=== PATIENT | female | born 1960 | race Caucasian/White ===

== ENCOUNTER → 2020-01-08 08:03 | Outpatient (BNVA) | payer OTHER, SELFPAY | PROVIDERS: Visit Provider Dietitian, Registered | DX: Z76.89 Persons encountering health services in other specified circumstances (principal) ==

== ENCOUNTER 2020-05-26 11:03 | Outpatient (REF) | payer OTHER, SELFPAY ==
--- NOTE | ~2020-05-26 | XR_ITS ---
EXAMINATION: XR HAND, LEFT CLINICAL INFORMATION: Left hand pain COMPARISON: None TECHNIQUE: PA, lateral, and oblique views of the left hand. Additional coned-down 2 views of the third digit. FINDINGS: There is no fracture or dislocation. Alignment is anatomic. The joint spaces are maintained. Tiny marginal osteophytes are seen throughout the distal interphalangeal joints. Mild soft tissue swelling of the third digit. No foreign body. XR/XR hand LT min 3V IMPRESSION: No acute osseous abnormality. Mild degenerative change. There are digit soft tissue swelling is noted.
== END 2020-05-26 11:04 | disposition home or self-care (01) ==
LOC: HO.HOSX 11:03
PROVIDERS: Visit Provider Orthopaedic Surgery
DX: S63.633A Sprain of interphalangeal joint of left middle finger, initial encounter (principal)
CPT/HCPCS: 73130

== ENCOUNTER 2022-11-30 12:28 | Outpatient (AMB) | payer OTHER, SELFPAY ==
--- NOTE | 2022-11-30 12:33 | MHC.OFFVISWM ---
Intake VS Expanded 11/30/22 12:37 BP 152/68 H Blood Pressure Location Rt brachial Blood Pressure Position Sitting Pulse 76 Pulse Source Pulse Oximeter Temp 97.7 F Temperature Source Temporal Artery Scan Pulse Oximetry 96 Oxygen Delivery Method Room Air Height 5 ft 6 in Weight 237 lb 3.2 oz BMI 38.3 Body Fat % 46.2 Body Fat Mass 109.6 Fat Free Mass 127.4 Visceral Fat Rating 14.0 Body Water % 38.1 Body Water Mass 90.4 Muscle Mass/Score 121.0 Basal Metabolic Rate/Score 1,786 Intake Visit Reasons: (OV) PO LSG 04/11/18 Allergies No Known Allergies [No Known Allergies*] Allergy (Verified 11/30/22 12:35) Medication List - Last Reconciled 11/30/22 by YOLANDA Shane losartan 25 mg PO DAILY meloxicam 15 mg PO DAILY PRN metformin ER 500 mg PO .PRN potassium chloride ER 20 mEq PO DAILY pravastatin 10 mg PO DAILY HPI HPI Comments History of Present Illness Details This?is a?62?yo female who is s/p LSG 04/11/2018. Presents for 4.5 year post op visit. Weight at last visit on 08/12/2021 was 230 pounds with a BMI of 37.1, weight today is 237.2 pounds, representing a 7.2 pound weight gain with a BMI today of 38.3.? No complaints of nausea, emesis, abdominal pain, or constipation. Had occasional reflux when triggered, but this is better now- was treating with baking soda. Pt has excess skin of abdomen which is very heavy. 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 Son No problems noted. Social History Alcohol intake: never Patient Tobacco Use Status: Never used Tobacco Current occupational status: unemployed Current occupation: right handed Physical Exam Vital Signs: Last Vital Signs Temp 97.7 F 11/30/22 12:37 Pulse 76 11/30/22 12:37 BP 152/68 H 11/30/22 12:37 Pulse Ox 96 11/30/22 12:37 Oxygen Delivery Method Room Air 11/30/22 12:37 BMI result Body Mass Index 38.3 Const General: cooperative, comfortable and no acute distress Orientation/consciousness: patient oriented x3 GI Other: soft, nontender, nondistended, incisions well healed, no hernia, no masses Neuro General: patient oriented x3 Assessment & Plan Assessment & Plan (1) Status post laparoscopic sleeve gastrectomy: Code(s): Z98.84 - Bariatric surgery status (2) Obesity: Code(s): E66.9 - Obesity, unspecified Plan Pt does not want to use bars or shakes. Will make a food based plan breakfast- 2 eggs, can add veg lunch and dinner- 3-4oz protein, 3-4 oz salad/veg snack- danish yogurt or cottage cheese Pt has already increased exercise this week, trying to walk more. Labs ordered. RTC 3 months for accountabiilty. Patient is obese and is not considered stable at this time. I spent a total of 30 minutes reviewing/updating records, examining the patient and counseling the patient on weight management as detailed above. Orders: Orders IRON PROFILE Today Z98.84 - Bariatric surgery status Vitamin B12 and Folate Today Z98.84 - Bariatric surgery status Comprehensive Met. Panel Today Z.84 - Bariatric surgery status Vitamin A Today Z98.84 - Bariatric surgery status C Reactive Protein Today Z98.84 - Bariatric surgery status PTHI Today Z98.84 - Bariatric surgery status Insulin Today Z98.84 - Bariatric surgery status Lipid Panel Today Z98.84 - Bariatric surgery status Complete Blood Count Auto Diff Today Z98.84 - Bariatric surgery status Zinc Today Z98.84 - Bariatric surgery status Vitamin B1 Today Z98.84 - Bariatric surgery status Ferritin Today Z98.84 - Bariatric surgery status TSH reflex Free T4 Today Z98.84 - Bariatric surgery status Vitamin D 25-OH Total Today Z98.84 - Bariatric surgery status Hemoglobin A1c Today Z98.84 - Bariatric surgery status Coding Level of Care Code Est Pt Level 4 (17085) Diagnoses Status post laparoscopic sleeve gastrectomy Z98.84 Obesity E66.9
[2022-11-30 12:37] VITALS: BP 152/68; PULSE 76; TEMP 36.5; O2SAT 96; BMI 38.3
== END 2022-11-30 13:05 | disposition home or self-care (01) ==
PROVIDERS: PCP Internal Medicine; Visit Provider Physician Assistant Surgical
DX: E66.9 Obesity, unspecified (principal); Z68.38 Body mass index [BMI] 38.0-38.9, adult; Z90.3 Acquired absence of stomach [part of]; Z98.84 Bariatric surgery status
CPT/HCPCS: 99214

== ENCOUNTER → 2022-11-30 12:28 | Outpatient (BNVA) | payer OTHER, SELFPAY | PROVIDERS: PCP Internal Medicine; Visit Provider Physician Assistant Surgical ==